=== PATIENT | female | born 1950 | race Caucasian/White ===

== ENCOUNTER 2022-07-17 08:59 | Day surgery (SDC) | payer OTHER ==
[2022-07-15 15:44] VITALS: BMI 20.6
[2022-07-17 09:27] VITALS: RESP 18
[2022-07-17 10:43] VITALS: TEMP 97.5
[2022-07-17 11:06] VITALS: BP 98/50; PULSE 73
== END 2022-07-17 11:13 | disposition home or self-care (01) ==
LOC: FASU-ENDO 08:59
PROVIDERS: ATTEND Internal Medicine Gastroenterology
PROC: 0DB78ZX Excision of Stomach, Pylorus, Via Natural or Artificial Opening Endoscopic, Diagnostic (ICD-10-PCS; 2022-07-17)
PROC: 0DB48ZX Excision of Esophagogastric Junction, Via Natural or Artificial Opening Endoscopic, Diagnostic (ICD-10-PCS; 2022-07-17)
PROC: 0DB98ZX Excision of Duodenum, Via Natural or Artificial Opening Endoscopic, Diagnostic (ICD-10-PCS; principal; 2022-07-17 10:21)
DX: K21.00 Gastro-esophageal reflux disease with esophagitis, without bleeding (principal); K29.50 Unspecified chronic gastritis without bleeding; K25.9 Gastric ulcer, unspecified as acute or chronic, without hemorrhage or perforation
CPT/HCPCS: 88305-TC; 88342-TC